=== PATIENT | male | born 1960 | race African-American/Black ===

== ENCOUNTER 2017-02-19 09:33 | Inpatient (IN) ==
[2017-02-19] MEDS ORDERED: KETOROLAC 30 MG/1 ML VIAL IV STA (09:56)
[2017-02-19] MEDS ORDERED: ONDANSETRON 4 MG/2 ML VIAL IV STA (09:56)
[2017-02-19] MEDS ORDERED: cefTRIAXone 1,000 MG in SODIUM CHLORIDE 0.9% 100 ML IV STA (09:56)
[2017-02-19] MEDS ORDERED: SODIUM CHLORIDE 0.9% 1,000 ML IV STA (09:56)
--- NOTE | 2017-02-19 10:08 | Emergency Department Note ---
Rocky Estes Kasabria, am scribing for, and in the presence of, Kali Torres MD 10:04. Melissa Estes Charles R, MD, personally performed the services described in this documentation, ascribed by Tee iHdalgo in my presence, and it is both accurate and complete . Arrival - Arrival Chief Complaint: Abdominal / Flank Pain Stated Complaint: stomach pain. sent over to ct ED Nursing Triage Note: Pt [facility] and told to come in today for a CT of his abd. Pt c/o generalized abd pain since Saturday night with frequent urination, chills and diarrhea. Mode of Arrival: Ambulatory Limitations: No Limitations Source: Patient Time Seen by Provider: 02/19/17 09:50 - History of Present Illness HPI Narrative: This is a 56 y/o black male presenting to the ED with c/o abdominal pain, body aches, frequent urination, fever, chills, and diarrhea that onset Saturday. Pt was seen at the [facility] yesterday was told to come to the ED for a CT of his abdomen. He states the pain onset all over his body Saturday at 1700. Je denies taking any medication for his pain. He did experience hemturia on Saturday after urinating but states it cleared after drinking apple juice. Pt states he is urinating every 30-45 minutes and can not control it. He denies nausea, vomiting, ALBRECHT, vision change, and hematochezia. He denies taking daily medication and his PMHx is unremarkable. Pt was sent home from work yesterday due to his blood pressure being 191/120. He is not medicated for his blood pressure. Consistency: constant Severity: moderate Allergies/Adverse Reactions: Allergies Allergy/AdvReac Type Severity Reaction Status Date / Time No Known Allergies Allergy Unverified 02/18/17 21:26 Home Medications: Home Medications Medication Instructions Recorded Confirmed Type No Known Home Medications [No 02/18/17 02/19/17 History Known Home Medications] Review of System - Review of System 12 point system: reviewed and no additional remarkable complaints except as stated - Review of System Constitutional: Present: fever (101). Absent: chills, weakness Eyes: Absent: vision change Head/Ears/Nose/Throat: Absent: nasal drainage Respiratory: Present: cough. Absent: wheezing Cardiovascular: Absent: chest pain Gastrointestinal: Present: abdominal pain (RLQ; midline ). Absent: nausea, vomiting, diarrhea Genitourinary male: Present: frequency, hematuria (Saturday ). Absent: dysuria Musculoskeletal: Absent: arm pain, back pain, leg pain, neck pain Neurological: Absent: headache, weakness, confusion, vertigo Psychiatric: Absent: anxiety Endocrine: Absent: fatigue Hematological/Lymphatic: Absent: easy bleeding Allergic/Immunologic: Absent: facial swelling Medical,Surgical,& Family Hx - Medical History Cardio: History of: Hypertension - Social History Smoking Status: Never smoker Exam Vital Signs: Vital Signs Temperature 101.4 F H 02/19/17 09:36 Pulse Rate 102 H 02/19/17 09:36 Respiratory Rate 18 02/19/17 09:36 Blood Pressure 174/74 02/19/17 09:36 O2 Sat by Pulse Oximetry 92 L 02/19/17 09:36 - General General appearance: alert, in no apparent distress - Head Head exam: Present: atraumatic, normocephalic, normal inspection - Eye Eye exam: Present: normal appearance, PERRL, EOMI - ENT ENT exam: Present: normal exam, normal oropharynx, mucous membranes moist, TM's normal bilaterally, normal external ear exam - Neck Neck exam: Present: normal inspection, full ROM, trachea midline. Absent: tenderness - Chest Chest inspection: Present: normal inspection, symmetric chest wall rise. Absent : tenderness - Respiratory Respiratory exam: Present: normal lung sounds bilaterally - Cardiovascular Cardiovascular exam: Present: normal rhythm, tachycardia, normal heart sounds. Absent: regular rate - Abdominal Exam Abdominal exam: Present: soft, tenderness (midline; RLQ ), diminished bowel sounds. Absent: distention, normal bowel sounds - Extremities Exam Extremities exam: Present: normal inspection, full ROM, normal capillary refill. Absent: tenderness, pedal edema, calf tenderness - Back Exam Back exam: Present: full ROM, tenderness (bilateral flank tenderness ). Absent : normal inspection - Neurological Exam Neurological exam: Present: alert, oriented X3, CN II-XII intact, normal gait, reflexes normal - Psychiatric Psychiatric exam: Present: normal affect, normal mood - Skin Skin exam: Present: warm, dry, intact, normal color. Absent: diaphoresis Course - Consultations Consultation #1: Hospitalist will admit patient Time: 11:12 Results - Labs CBC & BMP: 02/19/17 10:11 02/19/17 10:11 Lab Results: I have reviewed the patients labs - Diagnostic Findings Procedure: Abdominal x-ray: report reviewed by me (gas in nondistended loops of small bowel which is nonspecific finding at this time and could be related to possible mild ileus/enteritis. No free air. ), Chest x-ray: report reviewed by me (overlapping soft tissue densities with limited evaluation of left lower lung zone. Findings which can be seen with possible mild CHF/pneumonitis or chronic interstitial scarring. Evidence of old healed granulomatous disease. ) Critical Care Time Critical Care Time: Yes Total Critical Care Time: 60 Disposition Clinical Impression: Abdominal pain, Gastroenteritis, Sepsis, UTI (urinary tract infection), Pneumonitis, Fever Case discussed with: patient Disposition: Still a Patient Condition: Stable Time of Disposition: 11:12
--- NOTE | 2017-02-19 10:22 | XRay Report ---
Portable chest Date: 02/19/2017 Clinical history: Generalized abdominal pain Comparison: None Technique: Portable AP sitting chest Findings: The heart is borderline in size with probable left cardiac fat pad. Overlapping soft tissue densities at the left lung base with accentuation of the perihilar markings extending to the lung bases. Calcified granulomata/nodes. Degenerative changes are noted. Impression: Overlapping soft tissue densities with limited evaluation of left lower lung zone. Findings which can be seen with possible mild CHF/pneumonitis or chronic interstitial scarring. Evidence of old healed granulomatous disease. PROCEDURE INTERPRETED AT [facility] DEPARTMENT OF RADIOLOGY Final Report Signed by: Dr. Nikia Robles
--- NOTE | 2017-02-19 10:24 | XRay Report ---
Exam: XR abdomen 2V Date: 02/19/2017 9:57 AM Comparison: None Indication: Generalized abdominal pain Technique:[Supine and erect abdomen] Findings: Gas in nondistended loops of small bowel with no free air. Degenerative changes. Nonspecific calcifications in the pelvis. Impression: Gas in nondistended loops of small bowel which is nonspecific finding at this time and could be related to possible mild ileus/enteritis. No free air. PROCEDURE INTERPRETED AT [facility] DEPARTMENT OF RADIOLOGY Final Report Signed by: Dr. Nikia Robles
[2017-02-19] MEDS ORDERED: KETOROLAC 30 MG/1 ML VIAL ONE (10:28)
[2017-02-19] MEDS ORDERED: ONDANSETRON 4 MG/2 ML VIAL ONE (10:28)
[2017-02-19 10:29] LABS: Basophils % 0.1 % (0.0-0.8); Hematocrit 42.8 VOL% (42.0-52.0); Hemoglobin 14.3 GM/DL (14.0-18.0); Immature Granulocytes % 0.8 %; Immature Granulocytes Absolute 0.12 #; Lymphocytes # 1.3 10*3/uL (1.4-4.0); Lymphocytes % 8.7 % (21.2-54.2); Mean Corpuscular HGB Conc 33.4 GM/DL (32-36); Mean Corpuscular Hemoglobin 31 PG (27-34); Mean Corpuscular Volume 92.8 FL (87-102); Mean Platelet Volume 10.3 FL (9.6-12.0); Monocytes # 0.8 10*3/uL (0.11-0.8); Monocytes % 4.8 % (1.7-12.7); Neutrophils # 13.2 10*3/uL (1.4-7.4); Neutrophils % 85.6 % (38.7-73.9); Platelet Count 177 T/CUMM (130-400); Red Blood Count 4.61 MC/CUMM (3.8-5.5); Red Cell Distribution Width 11.3 % (9.3-17.3); White Blood Count 15.5 T/CUMM (4-12)
[2017-02-19 10:34] LABS: Apearance,Urine CLOUDY (Clear); Bacteria,Urine Occasional /HPF (Few); Bilirubin,Urine Negative (Negative); Blood, Urine Small mg/dL (Negative); Glucose,Urine (UA) Negative (Negative); Ketones,Urine Negative (Negative); Nitrite,Urine Negative (Negative); Protein,Urine 100 MG/DL; RBC,Urine 37 /HPF (0-4); Squamous Epithelial Cell,Urine Occasional /HPF (0-10); Urine Color Yellow (Yellow); Urine Specific Gravity 1.018 (1.001-1.035); Urine Urobilinogen < 2.0 EU/DL (0.2-1.0); WBC,Urine 232 /HPF (0-6)
--- NOTE | 2017-02-19 10:57 | CT Report ---
Exam: CT abdomen pelvis wo con Date: 02/19/2017 9:57 AM Comparison: None Indication: Abdominal pain and pelvic pain Total DLP: 1092.0 mGy*cm Technical: No oral contrast was administered. Images were obtained from the lung bases to the iliac crest continuation through the pelvis without intravenous contrast with axial sagittal coronal imaging available for review. Dose reduction was performed with decreasing kv and mA and automated exposure Findings: Lung bases: No obvious infiltrates or effusions present. Small granulomas present in the right lung base. Liver and Spleen: Liver is unremarkable. Splenic granuloma changes are present. Gallbladder and Pancreas: Gallbladder is partially contracted pancreas is unremarkable. Adrenals: Unremarkable Kidneys: No obvious obstructive uropathy. No defined stones present. Stomach: Incompletely distended with air-fluid and debris Retroperitoneum: No enlarged lymph nodes. Aorta and IVC: No obvious aneurysm IVC is otherwise intact. Bowel and Mesentery: Moderate stool and debris in the bowel. The appendix is unremarkable. Pelvis: Bladder: Incompletely distended Fluid: No free fluid identified. Lymph nodes: There are small lymph nodes in the inguinal regions bilaterally. Pelvic organs: Unremarkable phleboliths are present in the right true pelvis. Osseous structures: Mild degenerative changes of the lumbosacral spine at L5-S1 Impression: 1. Small shotty nodes in the inguinal regions 2. No other abnormalities clearly demonstrated on today's exam. 3. Mild discogenic disease and degenerative spondylosis at L5-S1 PROCEDURE INTERPRETED AT [facility] DEPARTMENT OF RADIOLOGY Final Report Signed by: Dr. José Miguel Nelson
[2017-02-19 11:05] LABS: Lactic Acid 1.1 MMOL/L (0.4-2.0)
[2017-02-19 11:07] LABS: Albumin 3.6 G/DL (3.4-5.0); Calcium 8.7 MG/DL (8.5-10.1); Magnesium 2.1 MG/DL (1.8-2.4); Potassium 3.8 MMOL/L (3.5-5.1); Total Protein 7.7 G/DL (6.4-8.3); Troponin I Only 0.032 NG/ML (0.00-0.045)
[2017-02-19] MEDS ORDERED: cefTRIAXone 1,000 MG VIAL ONE (11:43)
[2017-02-19 12:08] LABS: Sedimentation Rate-Westergren 35 MM/HR (0-20)
--- NOTE | 2017-02-19 13:47 | Hospitalist History & Physical ---
Assessment and Plan (1) Abdominal pain Status: Acute Assessment and plan: RUQ tender at time of assessment; Abdominal x-ray: suggests gas in nondistended loops of small bowel which is nonspecific finding at this time and could be related to possible mild ileus/enteritis and no free air. We will promote bowel rest, rehydrate, control pain and nausea. Current Visit: Yes (2) UTI (urinary tract infection) Status: Acute Assessment and plan: Bagley cultures obtained; UTI confimed; will start empiric antibiotic coverage, hydrate, and await culture results. Current Visit: Yes (3) Pneumonitis Status: Acute Assessment and plan: Will start empiric antibiotic coverage and monitor. Current Visit: Yes (4) Hypertension Status: Acute Assessment and plan: Blood pressures were elevated at the time of admission; the patient reported that he has been told in the past that he was hypertensive; however he is not on any current medications. We will start low dose thaizide diuretic. Current Visit: Yes History of Present Illness Chief complaint: abdominal pain, body aches, frequent urination, fever, chills, and diarrhea History of present illness: This is a pleasant 56 year old male that presented to the ED at [facility] this morning for evaluation of abdominal pain, body aches, frequent urination, fever, chills, and diarrhea. The patient has a past medical history of hypertension; however he reports that he not on any medication. The patient reported the onset of the above symptoms on Saturday. He presented to the [facility] yesterday in which he was advised to present to the Ed for further evaluation. In addition, he reported an episode of hematuria on Saturday; it cleared up after increasing his fluid intake. He also reports urinary frequency and episodes of incontinence since Saturday. He did experience hematuria on Saturday after urinating but states it cleared after drinking apple juice. He reports that he was sent home from work yesterday due to a hypertensive episode in which his blood pressure was noted at 191/120. Labs were obtained which revealed leukocytosis with a white blood cell count at 15.5 and mild renal impairment with a creatinine at 1.40. Abdominal radiograph reported gas in nondistended loops of small bowel which is nonspecific finding at this time and could be related to possible mild ileus/enteritis. No free air. Chest radiograph showed overlapping soft tissue densities with limited evaluation of left lower lung zone, findings which can be seen with possible mild CHF/pneumonitis or chronic interstitial scarring; and evidence of old healed granulomatous disease. After brief discussion with both Dr. Torres and Dr. Diaz, the patient will be admitted to the hospitalist service for continuation of care. Home Medications Medication Instructions Recorded Confirmed Type No Known Home Medications [No 02/18/17 02/19/17 History Known Home Medications] Allergies Allergy/AdvReac Type Severity Reaction Status Date / Time No Known Allergies Allergy Unverified 02/18/17 21:26 Medical,Surgical,& Family Hx - Medical History Cardio: History of: Hypertension - Social History Smoking Status: Never smoker 12 point system: reviewed and no additional remarkable complaints except as stated Exam - Constitutional Vitals: Period Temp Pulse Resp BP Sys/Nava Pulse Ox Last 24 Hr 98.3 F-99.2 F 84-95 18-98 142-169/76-96 16-98 General appearance: normal weight, mild distress - Head Head exam: Present: normal inspection, normocephalic, atraumatic - Eye Eye exam: Present: EOMI, conjunctival injection. Absent: nystagmus, periorbital swelling Pupils: Present: MARY LOU, normal accommodation - ENT ENT exam: Present: normal exam, normal external ear exam, normal oropharynx - Neck Neck exam: Present: normal inspection. Absent: lymphadenopathy, meningismus, tenderness, thyromegaly - Respiratory Respiratory exam: Present: clear to auscultation bilaterally. Absent: rales, rhonchi, stridor, wheezes - Cardiovascular Cardiovascular exam: Present: regular rate and rhythm. Absent: carotid bruit, diastolic murmur, gallop, JVD, rubs, systolic murmur - GI/Abdominal GI/Abdominal exam: Present: normal bowel sounds, tenderness (RUQ tenderness upon gentle palpation) - Extremities Exam Extremities exam: Present: normal inspection, normal capillary refill, full ROM. Absent: calf tenderness, edema - Back Exam Back exam: Present: normal inspection - Neurological Exam Neurological exam: Present: alert, oriented X3, CN II-XII intact - Psychiatric Psychiatric exam: Present: normal affect, normal mood - Skin Skin exam: Present: normal color, warm, dry Results - Labs CBC & BMP: 02/19/17 10:11 02/19/17 10:11 Lab Results: I have reviewed the past 24 hour labs Quality Measures - VTE Deep Vein Thrombosis/Pulmonary Embolism Present on Admission: No
[2017-02-19] MEDS: ACETAMINOPHEN 325 MG TABLET PO PRN ×2 (15:00→21:34)
[2017-02-19] MEDS ORDERED: ONDANSETRON 4 MG/2 ML VIAL IV PRN (18:03)
[2017-02-19] MEDS ORDERED: POTASSIUM CHLORIDE RIDER 10 MEQ in PREMIX 1 EACH IV PRN (18:06)
[2017-02-19] MEDS ORDERED: MAGNESIUM SULF RIDER 2 GM in PREMIX 1 EACH IV PRN (18:06)
[2017-02-19] MEDS ORDERED: MAGNESIUM SULF RIDER 4 GM in PREMIX 1 EACH IV PRN (18:06)
[2017-02-19] MEDS: SODIUM CHLORIDE 0.9% 1,000 ML IV SCH (18:35)
[2017-02-19] MEDS: ENOXAPARIN 40 MG/0.4 ML SYRINGE SUBCUT SCH (18:35)
[2017-02-19] MEDS: MORPHINE 2 MG/1 ML SYRINGE IV PRN (18:35)
[2017-02-19] MEDS: AMPICILLIN/SULBACTAM 3,000 MG in SODIUM CHLORIDE 0.9% 100 ML IV SCH ×2 (19:30→23:55)
[2017-02-20] MEDS: MORPHINE 2 MG/1 ML SYRINGE IV PRN (00:53)
[2017-02-20] MEDS: ACETAMINOPHEN 325 MG TABLET PO PRN ×2 (05:38→20:50)
[2017-02-20] MEDS: AMPICILLIN/SULBACTAM 3,000 MG in SODIUM CHLORIDE 0.9% 100 ML IV SCH (05:39)
[2017-02-20] MEDS: SODIUM CHLORIDE 0.9% 1,000 ML IV SCH ×3 (05:40→22:34)
[2017-02-20 07:01] LABS: Basophils % 0.3 % (0.0-0.8); Eosinophils % 0.1 % (0.00-10.9); Hematocrit 38.5 VOL% (42.0-52.0); Hemoglobin 12.7 GM/DL (14.0-18.0); Immature Granulocytes % 0.8 %; Immature Granulocytes Absolute 0.08 #; Lymphocytes # 1.1 10*3/uL (1.4-4.0); Lymphocytes % 11.1 % (21.2-54.2); Mean Corpuscular Hemoglobin 30 PG (27-34); Mean Corpuscular Volume 91.7 FL (87-102); Mean Platelet Volume 10.5 FL (9.6-12.0); Monocytes # 0.5 10*3/uL (0.11-0.8); Monocytes % 5.3 % (1.7-12.7); Neutrophils # 8.2 10*3/uL (1.4-7.4); Neutrophils % 82.4 % (38.7-73.9); Platelet Count 160 T/CUMM (130-400); Red Cell Distribution Width 11.5 % (9.3-17.3)
[2017-02-20 07:23] LABS: Band Neutrophils 2 % (0-10); Hypochromasia 1+; Lymphocytes 14 % (20-55); Platelet Estimate Normal; Segmented Neutrophils 76 % (50-85); Total Cells Counted 100
[2017-02-20 07:35] LABS: Calcium 7.7 MG/DL (8.5-10.1); Potassium 3.7 MMOL/L (3.5-5.1)
[2017-02-20 07:46] LABS: Magnesium 1.8 MG/DL (1.8-2.4); Risk Ratio 2.94; Thyroid Stimulating Hormone 1.51 uIU/ml (0.358-3.74); VLDL CHOLESTEROL 16.8 MG/DL
[2017-02-20] MEDS: PANTOPRAZOLE 40 MG TABLET PO SCH (09:30)
--- NOTE | 2017-02-20 10:57 | Infectious Disease Consult ---
Assessment and Plan (1) Fever Status: Acute Assessment and plan: So seems to be urinary tract infection given significant pyuria. It is possible he may be bacteremic. In terms of the urinary tract infection the prostate may be the location for the infection. Recommendations: I agree with the switch to Zosyn. Will follow up the blood and urine cultures which are pending. As a relatively young man he does not have a definite risk factor for urinary tract infections and so may at some point benefit from seeing a urologist. Thank you very much for the consult. Will follow. Discussed with Dr. Diaz Current Visit: Yes (2) UTI (urinary tract infection) Status: Acute Assessment and plan: Zosyn as above. Follow-up cultures. Current Visit: Yes History of Present Illness Chief complaint: Fever History of present illness: Mr. Garcia is a 56 year old male With no known past medical history according to him. He was well until he started having increased urinary frequency and some intermittent dysuria 4 days ago. This continued and then he developed intermittent episodes of hematuria. He went to the nurse at his workplace on Saturday and his blood pressure was high. He was advised to go to the hospital for further care. Patient ended up being admitted to hospital and ended up being admitted to the hospital. He has been febrile since admission but was not aware fever at home however he said he was having chills. Patient denies nausea vomiting or diarrhea. No abdominal or back pain. Urine is suggestive of UTI and I am asked to assist with management. He was initially on Unasyn but he was switched to Zosyn today. Does have a past history of urinary tract infections, never had a sexually transmitted infection. He is . Home Medications Medication Instructions Recorded Confirmed Type No Known Home Medications [No 02/18/17 02/19/17 History Known Home Medications] Allergies Allergy/AdvReac Type Severity Reaction Status Date / Time No Known Allergies Allergy Unverified 02/18/17 21:26 12 point system: reviewed and no additional remarkable complaints except as stated (Per HPI) Medical,Surgical,& Family Hx - Medical History Cardio: History of: Hypertension HEENT: History of: Eye Problem (wears glasses, stigmatism) Musculoskeletal: History of: Back/Neck Problems (arthritits in back) - Surgical History Orthopedic Surgeries: Surgical HX of;: Orthopedic Surgery (roatator cuff surgery December 28, 2015) - Family History Family History: Reports;: Family Cancer (mother (colon) and father (prostate)), Family Hypertension (father) Denies;: Family Anesthesia Reaction, Family Diabetes, Family Heart Disease, Family Hematology, Family Psychiatric Problems, Family Stroke - Social History Smoking Status: Never smoker Frequency of Alcohol Use: Occasionally Infectious Disease Exam H&P - Constitutional Vitals: Vital Signs Temp Pulse Resp BP Pulse Ox 98.9 F 74 20 154/67 95 02/20/17 08:00 02/20/17 08:00 02/20/17 08:00 02/20/17 08:00 02/20/17 08:00 Intake and Output 02/19/17 02/20/17 02/20/17 23:59 07:59 15:59 Intake Total 100 / 100 1700 / 1700 Balance 100 / 100 1700 / 1700 Intake: IV 100 / 100 1200 / 1200 Unasyn 3,000 mg In Ns 100 100 / 100 200 / 200 ml @ 200 mls/hr IV Q6H ALESSIA Rx#:[id number] Ns 1,000 ml @ 125 mls/hr 1000 / 1000 IV .Q8H ALESSIA Rx#: [id number] Oral 500 / 500 Other: Voiding Method Toilet Toilet # Voids 2 6 Exam: General: Patient looks somewhat malaised HEENT: Mucous membranes pink and moist, anicteric acyanotic, MARY LOU, no oropharyngeal exudates Neck: Supple, no thyroid gland enlargement, no lymphadenopathy Respiratory system: Breath sounds vesicular, no crepitations or wheezes Cardiovascular: Normal S1 and S2, no murmurs appreciated Abdomen: Normal bowel sounds, soft nontender throughout, no organomegaly or mass Genitourinary: No suprapubic pain or bladder distention, no CVA tenderness Extremities: no edema Skin: No rash Reports - Labs CBC & BMP: 02/20/17 06:49 02/20/17 06:49 Labs: Laboratory Results - last 24 hr 02/19/17 02/20/17 02/20/17 20:09 06:49 06:49 WBC 10.0 D RBC 4.20 Hgb 12.7 L Hct 38.5 L MCV 91.7 MCH 30 MCHC 33.0 RDW 11.5 Plt Count 160 MPV 10.5 Neut % (Auto) 82.4 H Lymph % (Auto) 11.1 L Dent % (Auto) 5.3 Eos % (Auto) 0.1 Baso % (Auto) 0.3 Neut # (Auto) 8.2 H Lymph # (Auto) 1.1 L Dent # (Auto) 0.5 Eos # (Auto) 0.0 Baso # (Auto) 0.0 Total Counted 100 Immature Gran % 0.8 Nucleated RBC % 0.0 Immature Gran # 0.08 Segmented Neutrophils 76 Band Neutrophils 2 Lymphocytes 14 L Monocytes 7 Basophils 1.0 H Nucleated RBCs # 0.00 Platelet Estimate Normal Hypochromasia 1+ Morphology Comment Sodium 136 Potassium 3.7 Chloride 101 Carbon Dioxide 27 Anion Gap 11.7 BUN 12 Creatinine 1.30 GFR Calculation 94 BUN/Creatinine Ratio 9.00 Glucose 150 H POC Glucose 154 H Calculated Osmolality 274.0 Calcium 7.7 L Magnesium B-Natriuretic Peptide Triglycerides Cholesterol LDL Cholesterol VLDL Cholesterol HDL Cholesterol Heart Disease Risk Ratio TSH 3rd Generation 02/20/17 02/20/17 02/20/17 06:49 06:49 07:32 WBC RBC Hgb Hct MCV MCH MCHC RDW Plt Count MPV Neut % (Auto) Lymph % (Auto) Dent % (Auto) Eos % (Auto) Baso % (Auto) Neut # (Auto) Lymph # (Auto) Dent # (Auto) Eos # (Auto) Baso # (Auto) Total Counted Immature Gran % Nucleated RBC % Immature Gran # Segmented Neutrophils Band Neutrophils Lymphocytes Monocytes Basophils Nucleated RBCs # Platelet Estimate Hypochromasia Morphology Comment Sodium Potassium Chloride Carbon Dioxide Anion Gap BUN Creatinine GFR Calculation BUN/Creatinine Ratio Glucose POC Glucose 155 H Calculated Osmolality Calcium Magnesium 1.8 B-Natriuretic Peptide 58 Triglycerides 84 Cholesterol 144 LDL Cholesterol 83.0 VLDL Cholesterol 16.8 HDL Cholesterol 49 Heart Disease Risk Ratio 2.94 TSH 3rd Generation 1.510 - Diagnostic Findings Procedure: Chest x-ray: image reviewed by me, report reviewed by me (Increased interstitial markings), CT Abdomen and Pelvis: report reviewed by me (No acute pathology no evidence of renal stones or hydronephrosis or perinephric stranding , no comment on the prostate)
[2017-02-20] MEDS: PIPERACILLIN/TAZOBACTAM 3,375 MG in SODIUM CHLORIDE 0.9% 100 ML IV SCH ×2 (12:45→20:49)
--- NOTE | 2017-02-20 14:20 | Hospitalist Progress Note ---
Assessment and Plan - Time spent with patient Time spent with patient: Greater than 30 minutes (1) UTI (urinary tract infection) Status: Acute Assessment and plan: White blood cell count has improved. Continue Zosyn. Infectious diseases involved. Awaiting speciation. Current Visit: Yes (2) Fever Status: Acute Assessment and plan: Patient has meningismus on exam. Will defer antibiotics to ID. Consider spinal tap if OK'd by ID. Current Visit: Yes Hospitalist: Subjective Interval history: Patient states he developed a headache and neck pain last night and this morning. He also has diarrhea currently. He also has urinary frequency and urgency. He has been favoring and his antibiotics were switched from Unasyn to Zosyn this morning. Exam - Constitutional Vitals: Period Temp Pulse Resp BP Sys/Nava Pulse Ox Last 24 Hr 98.9 F-102.9 F 74-96 20-20 122-176/56-91 94-96 General appearance: no acute distress - Head Head exam: Present: normocephalic, atraumatic - Eye Eye exam: Present: EOMI Pupils: Present: MARY LOU - ENT ENT exam: Present: normal exam - Neck Neck exam: Present: meningismus - Respiratory Respiratory exam: Present: clear to auscultation bilaterally. Absent: rhonchi, wheezes - Cardiovascular Cardiovascular exam: Present: regular rate and rhythm. Absent: gallop, rubs, systolic murmur - GI/Abdominal GI/Abdominal exam: Present: normal bowel sounds, soft. Absent: distended, firm , guarding, tenderness, rebound - Extremities Exam Extremities exam: Present: normal inspection. Absent: calf tenderness, edema Results - Labs CBC & BMP: 02/20/17 06:49 02/20/17 06:49 Lab Results: I have reviewed the past 24 hour labs Quality Measures - VTE Deep Vein Thrombosis/Pulmonary Embolism Present on Admission: No
[2017-02-20 15:48] LABS: Basophils % 0.4 % (0.0-0.8); Hematocrit 36.6 VOL% (42.0-52.0); Hemoglobin 12.1 GM/DL (14.0-18.0); Immature Granulocytes % 1.1 %; Immature Granulocytes Absolute 0.08 #; Lymphocytes % 13.1 % (21.2-54.2); Mean Corpuscular HGB Conc 33.1 GM/DL (32-36); Mean Corpuscular Hemoglobin 30 PG (27-34); Mean Corpuscular Volume 91.7 FL (87-102); Mean Platelet Volume 10.9 FL (9.6-12.0); Monocytes # 0.7 10*3/uL (0.11-0.8); Monocytes % 8.9 % (1.7-12.7); Neutrophils # 5.7 10*3/uL (1.4-7.4); Neutrophils % 76.5 % (38.7-73.9); Platelet Count 161 T/CUMM (130-400); Red Blood Count 3.99 MC/CUMM (3.8-5.5); Red Cell Distribution Width 11.4 % (9.3-17.3); White Blood Count 7.5 T/CUMM (4-12)
--- NOTE | 2017-02-20 15:59 | CT Report ---
CT brain Indication: Headache, fever Comparison: None available Technique: Axial CT imaging of the brain is performed without contrast with 3 mm increments. Findings: No evidence of hemorrhage, mass mass effect midline shift or acute infarct seen. The brain parenchyma attenuation and differentiation appears within normal limits. The ventricles and cisterns are normal in caliber. No cranial or skull base abnormality is identified. Impression: No evidence of abnormality demonstrated. This CT exam was performed using one or more the following dose reduction techniques: Automated exposure control, adjustment of the MA and/or KV according to patient size, or use of iterative reconstruction technique. PROCEDURE INTERPRETED AT [facility] DEPARTMENT OF RADIOLOGY Final Report Signed by: Dr. Von Nicholson
[2017-02-20] MEDS: CLOTRIMAZOLE 1% CREAM 15 GM TUBE TOP SCH ×2 (16:03→20:50)
[2017-02-20 16:05] LABS: Albumin 2.9 G/DL (3.4-5.0); Bilirubin,Total 1.2 MG/DL (0.2-1.0); Calcium 7.8 MG/DL (8.5-10.1); Total Protein 6.3 G/DL (6.4-8.3)
[2017-02-20] MEDS: ENOXAPARIN 40 MG/0.4 ML SYRINGE SUBCUT SCH (17:46)
[2017-02-21] MEDS: PIPERACILLIN/TAZOBACTAM 3,375 MG in SODIUM CHLORIDE 0.9% 100 ML IV SCH ×3 (05:53→20:30)
[2017-02-21] MEDS: PANTOPRAZOLE 40 MG TABLET PO SCH (09:38)
[2017-02-21] MEDS: CLOTRIMAZOLE 1% CREAM 15 GM TUBE TOP SCH ×2 (09:38→20:31)
--- NOTE | 2017-02-21 09:52 | Infectious Disease Progress ---
Assessment and Plan (1) Fever Status: Acute Assessment and plan: So seems to be urinary tract infection given significant pyuria. No evidence at that he is bacteremic. In terms of the urinary tract infection the prostate may be the location for the infection. Recommendations: 1. Continue empiric Zosyn 2. Check urine for gonorrhea and chlamydia for completeness sake 3. Monitor fever curve 4. Discussed with Dr. Diaz -doubt meningitis Current Visit: Yes (2) UTI (urinary tract infection) Status: Acute Assessment and plan: Zosyn as above. Follow-up cultures. Check urine for gonorrhea and chlamydia. Current Visit: Yes Infectious Disease - PN: Subj Interval history: Patient feeling much better overall, fever come down with T-max 100.5. He was having headache yesterday but says that that has improved, has pain to both sides of the neck but neck is supple. He feels like his appetite is good and he can tolerate normal diet. No vomiting. He had apparently some diarrhea before he says mixed with constipation but now that has resolved. No abdominal pain. Mild stinging with urination. No more hematuria. Infectious Disease Exam (PN) - Constitutional Vitals: Temp Pulse Resp BP Pulse Ox 98.4 F 72 20 126/75 96 02/21/17 08:00 02/21/17 08:00 02/21/17 08:00 02/21/17 08:00 02/21/17 08:00 General appearance: no acute distress Exam: General appearance: no acute distress, sitting comfortably in chair talking on phone - Eye Eye exam: Present: EOMI. no icterus Pupils: Present: MARY LOU - ENT ENT exam: no oral exudates - Neck Neck exam: Very supple - Respiratory Respiratory exam: vesicular BS, no crepitations or wheezes - Cardiovascular Cardiovascular exam: regular rate and rhythm, no murmurs - GI/Abdominal GI/Abdominal exam: normal bowel sounds, soft, non-tender, no organomegaly or mass, no CVA tenderness - Extremities Exam Extremities exam: no edema - Skin Skin exam: no rash Results - Labs CBC & BMP: 02/20/17 15:26 02/20/17 15:26 Lab Results: I have reviewed the past 24 hour labs (Gram-negative rods growing in urine, blood cultures negative to date) Quality Measures - VTE Deep Vein Thrombosis/Pulmonary Embolism Present on Admission: No
--- NOTE | 2017-02-21 10:36 | Physician Query Form ---
CLICK EDIT DOCUMENT TO SELECT QUERY ANSWER --> OK --> SIGN Kourtney Groves RN Clinical Emt/Paramedic W) [phone] (f) [phone] [email or web address] PROVIDERS: Make your selection(s) from the choices in EACH section by typing an "x" and enter comments in the comment section. Please use your independent medical judgment in providing your response. This request does not imply that any particular answer is desired or expected. CLINICAL INDICATORS: (Providers should not edit this section) Pt. admitted with UTI. Orrb=918.4, Fhcqr=877, WBC=15.5. Pt. treated with IV Zosyn. Please clarify which, if any, of the following is the etiology of the above symptoms and treatment rendered: (x ) Sepsis due to a localized infection, please specify infection: UTI ( ) SIRS of noninfectious origin ( ) Localized infection only, without systemic illness, please specify infection : ( ) Bacteremia (abnormal lab finding only, does not indicate systemic illness) ( ) Other condition, please specify: ( ) Clinically unable to determine Criteria for Sepsis (SIRS due to an infection) should be based on 2 or more of the following being present: Temperature > 101F or < 96.8F WBC > 12,000 or < 4,000, or > 10% bands Tachycardia HR > 90 beats/minute Tachypnea RR > 20 breaths/minute or PaCO2 > 32mmHg Lactate level > 2.0 mmol/L (>4 is equivalent to severe sepsis) Altered Mental Status Mottling of skin or prolonged capillary refill Non-diabetic hyperglycemia (blood sugar >120 mg/dl) Other evidence of acute organ failure associated with sepsis ( severe sepsis) COMMENTS: PLEASE ALSO DOCUMENT RESPONSE IN PROGRESS NOTES AND/OR DISCHARGE SUMMARY Use of terms such as suspected, likely, or probable (associated with a specific diagnosis that is being evaluated, monitored, or treated as if it exists) are acceptable and can be restated in the discharge summary if not ruled out. MTDD
--- NOTE | 2017-02-21 12:09 | Hospitalist Progress Note ---
Assessment and Plan - Time spent with patient Time spent with patient: Greater than 30 minutes (1) UTI (urinary tract infection) Status: Acute Assessment and plan: Continue current management and defer to ID. Current Visit: Yes (2) Fever Status: Acute Assessment and plan: See above. Current Visit: Yes Hospitalist: Subjective Interval history: Tmax of 100.5, complains of neck ache and headache however improving. Exam - Constitutional Vitals: Period Temp Pulse Resp BP Sys/Nava Pulse Ox Last 24 Hr 98.2 F-100.9 F 66-86 18-20 126-149/60-81 95-98 General appearance: no acute distress - Head Head exam: Present: normocephalic, atraumatic - Eye Eye exam: Present: EOMI Pupils: Present: MARY LOU - ENT ENT exam: Present: normal exam - Neck Neck exam: Present: normal inspection - Respiratory Respiratory exam: Present: clear to auscultation bilaterally. Absent: rhonchi, wheezes - Cardiovascular Cardiovascular exam: Present: regular rate and rhythm. Absent: gallop, rubs, systolic murmur - GI/Abdominal GI/Abdominal exam: Present: normal bowel sounds, soft. Absent: distended, firm , guarding, tenderness, rebound - Extremities Exam Extremities exam: Present: normal inspection. Absent: calf tenderness, edema Results - Labs CBC & BMP: 02/20/17 15:26 02/20/17 15:26 Lab Results: I have reviewed the past 24 hour labs Quality Measures - VTE Deep Vein Thrombosis/Pulmonary Embolism Present on Admission: No
[2017-02-21] MEDS: SODIUM CHLORIDE 0.9% 1,000 ML IV SCH ×2 (13:30→17:12)
[2017-02-21] MEDS: ENOXAPARIN 40 MG/0.4 ML SYRINGE SUBCUT SCH (20:30)
[2017-02-22] MEDS: PIPERACILLIN/TAZOBACTAM 3,375 MG in SODIUM CHLORIDE 0.9% 100 ML IV SCH ×2 (04:40→13:29)
[2017-02-22] MEDS: SODIUM CHLORIDE 0.9% 1,000 ML IV SCH (04:40)
[2017-02-22] MEDS: PANTOPRAZOLE 40 MG TABLET PO SCH (10:21)
[2017-02-22] MEDS: CLOTRIMAZOLE 1% CREAM 15 GM TUBE TOP SCH (10:25)
[2017-02-22 12:06] VITALS: BP 161/92
--- NOTE | 2017-02-22 12:14 | Infectious Disease Progress ---
Assessment and Plan (1) Fever Status: Acute Assessment and plan: So seems to be urinary tract infection given significant pyuria. No evidence at that he is bacteremic. In terms of the urinary tract infection the prostate may be the location for the infection. Pansensitive E. coli cultured. Recommendations: I am okay with the patient going home on ciprofloxacin 500 mg twice a day or levofloxacin 500 mg daily [better penetration into the prostate with quinolones versus cephalosporins). Because of concern he had prostatitis I would treat him for 3 weeks. I'd be happy to see him in the office in [address] Diaz Current Visit: Yes (2) UTI (urinary tract infection) Status: Acute Assessment and plan: As above Current Visit: Yes Infectious Disease - PN: Subj Interval history: Patient feels well, has had no recurrence of fever. He still says it is mild stinging with urination some mild dysuria however no hematuria no increased urinary frequency. No suprapubic pain. Appetite is good and no nausea vomiting and no more diarrhea. Infectious Disease Exam (PN) - Constitutional Vitals: Temp Pulse Resp BP Pulse Ox 97.9 F 66 20 161/92 99 02/22/17 12:00 02/22/17 12:00 02/22/17 12:00 02/22/17 12:00 02/22/17 08:00 General appearance: no acute distress Exam: General appearance: no acute distress, sitting comfortably in chair - Eye Eye exam: Present: EOMI. no icterus Pupils: Present: MARY LOU - ENT ENT exam: no oral exudates - Neck Neck exam: supple - Respiratory Respiratory exam: vesicular BS, no crepitations or wheezes - Cardiovascular Cardiovascular exam: regular rate and rhythm, no murmurs - GI/Abdominal GI/Abdominal exam: normal bowel sounds, soft, non-tender, no organomegaly or mass, no CVA tenderness - Extremities Exam Extremities exam: no edema - Skin Skin exam: no rash Results - Labs CBC & BMP: 02/20/17 15:26 02/20/17 15:26 Lab Results: I have reviewed the past 24 hour labs (E. coli cultured from urine pansensitive, blood cultures negative to date) Quality Measures - VTE Deep Vein Thrombosis/Pulmonary Embolism Present on Admission: No
--- NOTE | 2017-02-22 14:00 | Discharge Summary ---
Hospital Course - Hospital Course Hospital Course: Mr Garcia was admitted with sepsis secondary to a UTI and likely prostatitis. Blood and stool cultures negative. CXray negative. ID was consulted. Urine culture grew E. Coli pansensitive. His symptoms dramatically improved and he will be discharged with Ciprofloxacin 500mg po BID for 3 weeks. By discharge he had met maximum benefit of hospitalization. I spent 33 minutes coordinating this discharge. - Time spent with patient Time with patient DS: Greater than 30 minutes Diagnosis - Discharge Diagnosis (1) UTI (urinary tract infection) Status: Acute (2) Fever Status: Acute Discharge Plan - Discharge Data Disposition: Disch To Home/Self Care Condition at Discharge: Stable Discharge Diet: advance to your usual diet Activity: resume usual activities as tolerated - Discharge Medications New Ciprofloxacin HCl [Ciprofloxacin Tab] 500 mg PO BID #42 tablet - Follow Up or Referral - Forms/Instructions Exam - Constitutional Vitals: Period Temp Pulse Resp BP Sys/Nava Pulse Ox Last 24 Hr 97.7 F-99.4 F 65-92 20-20 142-182/77-92 96-99 General appearance: no acute distress, over weight - Head Head exam: Present: normal inspection, normocephalic, atraumatic - Eye Eye exam: Present: EOMI Pupils: Present: MARY LOU - ENT ENT exam: Present: normal exam - Neck Neck exam: Present: normal inspection - Respiratory Respiratory exam: Present: clear to auscultation bilaterally. Absent: accessory muscle use, prolonged expiratory phase, wheezes - Cardiovascular Cardiovascular exam: Present: regular rate and rhythm. Absent: bradycardia, irregular rhythm, systolic murmur - GI/Abdominal GI/Abdominal exam: Present: normal bowel sounds. Absent: ascites, distended, hypoactive bowel sounds, tenderness - Extremities Exam Extremities exam: Present: normal inspection Discharge Results Labs on day of discharge: Labs from last 24 hours 02/22/17 02/22/17 02/21/17 10:34 07:50 16:39 POC Glucose 209 H 128 H 121 H Preliminary micro results at discharge 02/19/17 11:23 Blood Culture - Preliminary Blood No growth at 3 days DS: Provider Date of admission: 02/19/17 11:18 Primary care physician: . No PCP Attending physician on admission: Emani Dotson MD Consults: 02/20/17 10:12 Consult to Physician [CONS] Routine Comment: UTI, fever, antibiotic recommendations/ duration Consulting Provider: Kylah Sanchez Consult to Specialist Group: Infectious Disease When should Consulting Provider be notified: Now Person Notified: SERENE Date Notified: 02/20/17 Time Notified: 10:23 Discharging clinician: Emani Dotson MD Expected date of discharge: 02/22/17
== END 2017-02-22 16:15 | disposition home or self-care (01) | DRG 872 ==
LOC: N.ED 09:33 → N.EDINP 11:18 → N.2E 13:50
PROVIDERS: ADMIT Internal Medicine; ATTEND Internal Medicine